=== PATIENT | male | born 1965 | race Caucasian/White ===

== ENCOUNTER → 2016-11-11 | Outpatient (CLI) | payer BC ==
[2016-11-11 12:34] LABS: ALT/SGPT 38 U/L (12-78); BLOOD UREA NITROGEN 12 mg/dl (7-18); BUN/CREATININE RATIO 12.7 (10-20); CALCIUM 8.7 mg/dl (8.5-10.1); CARBON DIOXIDE 26 mmol/L (21-32); CHLORIDE 103 mmol/L (98-107); CHOLESTEROL 149 mg/dl (0-200); CREATININE 0.96 mg/dl (0.60-1.40); GLUCOSE 247 mg/dl (70-99); POTASSIUM 4.3 mmol/L (3.5-5.1); SODIUM 140 mmol/L (136-145); TRIGLYCERIDES 267 mg/dl (0-150); VERY LOW DENSITY LIPOPROT CALC 53 mg/dl
[2016-11-11 12:38] LABS: ALB/GLOB RATIO 1.3 (0.9-2); ALKALINE PHOSPHATASE 49 U/L (45-117); AST/SGOT 24 U/L (15-37); CHOLESTEROL/HDL RATIO 4.3; HDL CHOLESTEROL 35 mg/dl; LDL CHOLESTEROL CALCULATED 61 mg/dl
[2016-11-11 12:56] LABS: ESTIMATED AVERAGE GLUCOSE 197 mg/dl; HA1C FLAG Normal (Normal)
== END | disposition home or self-care (01) ==
LOC: C.LABBFT 09:52
PROVIDERS: ATTEND Internal Medicine
DX: E11.42 Type 2 diabetes mellitus with diabetic polyneuropathy (principal)

== ENCOUNTER → 2017-05-27 | Outpatient (CLI) | payer BC ==
[2017-05-27 12:25] LABS: ALT/SGPT 40 U/L (12-78); AST/SGOT 19 U/L (15-37); BLOOD UREA NITROGEN 15 mg/dl (7-18); BUN/CREATININE RATIO 15.4 (10-20); CALCIUM 8.8 mg/dl (8.5-10.1); CARBON DIOXIDE 28 mmol/L (21-32); CHLORIDE 105 mmol/L (98-107); CREATININE 0.96 mg/dl (0.60-1.40); GLUCOSE 205 mg/dl (70-99); POTASSIUM 4.3 mmol/L (3.5-5.1); SODIUM 140 mmol/L (136-145)
[2017-05-27 12:30] LABS: ESTIMATED AVERAGE GLUCOSE 214 mg/dl; HA1C FLAG Normal (Normal)
[2017-05-27 12:36] LABS: ALB/GLOB RATIO 1.2 (0.9-2); ALKALINE PHOSPHATASE 50 U/L (45-117); CHOLESTEROL 143 mg/dl (0-200); CHOLESTEROL/HDL RATIO 4.5; HDL CHOLESTEROL 32 mg/dl; LDL CHOLESTEROL CALCULATED 39 mg/dl; TRIGLYCERIDES 359 mg/dl (0-150); VERY LOW DENSITY LIPOPROT CALC 72 mg/dl
[2017-05-27 12:49] LABS: RATIO 9.8 mcg/mg (0-30.0)
== END | disposition home or self-care (01) ==
LOC: C.LAB 10:46
PROVIDERS: ATTEND Internal Medicine
DX: E11.42 Type 2 diabetes mellitus with diabetic polyneuropathy (principal)

== ENCOUNTER → 2017-12-15 | Outpatient (CLI) | payer OTHER ==
[2017-12-15 13:31] LABS: HEMOGLOBIN A1C 9.5 % (4.5-5.6)
[2017-12-15 14:19] LABS: ALBUMIN 3.9 gm/dl (3.4-5.0); ALKALINE PHOSPHATASE 51 U/L (45-117); ALT/SGPT 39 U/L (12-78); AST/SGOT 21 U/L (15-37); BLOOD UREA NITROGEN 15 mg/dl (7-18); CALCIUM 9.2 mg/dl (8.5-10.1); CARBON DIOXIDE 28 mmol/L (21-32); CHOLESTEROL 137 mg/dl (0-200); CREATININE 0.87 mg/dl (0.60-1.40); GLUCOSE 217 mg/dl (70-99); LDL CHOLESTEROL CALCULATED 35 mg/dl; SODIUM 136 mmol/L (136-145); TOTAL PROTEIN 7.3 gm/dl (6.4-8.2)
== END | disposition home or self-care (01) ==
LOC: C.LABBFT 09:53
PROVIDERS: ATTEND Internal Medicine
DX: E11.42 Type 2 diabetes mellitus with diabetic polyneuropathy (principal)

== ENCOUNTER 2021-02-20 20:25 | Inpatient (IN) ==
[2021-02-20] MEDS ORDERED: SODIUM CHLORIDE 0.9% 1000ML 1,000 ML IV SCH (21:45)
--- NOTE | 2021-02-20 21:51 | Emergency Department Note ---
History of Present Illness General Chief complaint: Shortness of Breath/Dyspnea Stated complaint: pain-upper abdominal-sob Time Seen by Provider: 02/20/21 21:28 History of Present Illness This is a 55-year-old male presenting to the emergency department for evaluation of shortness of breath symptoms worsening over the past 2 days. The patient did contact his primary care physician office where he spoke to the provider via telephone. Chest x-ray and BNP were ordered and without significant acute findings. The patient attempted to be seen today, but was not able to get in with a family doctor, and they referred him to the ER. The patient is diabetic with history of hypertension. He gets very winded with walking 15-20 steps. He has not had any fevers or chills. He does not feel like he is having any coughing or wheezing. He has been able to quarantine throughout the COVID- pandemic very well and has not had any known exposures. The patient rates his current discomfort a 5/10. Home Medications Medication Instructions Recorded Confirmed Type aspirin 81 mg tablet,delayed 81 mg PO BID #30 tab 05/26/19 02/20/21 Rx release pen needle, diabetic 31 gauge x #200 ea 06/25/19 02/19/21 Rx 03/22" blood-glucose meter, drum-type #1 ea 07/03/19 02/19/21 Rx blood sugar diagnostic #200 ea 07/05/19 02/19/21 Rx lancets #200 ea 07/05/19 02/19/21 Rx glimepiride 4 mg tablet 4 mg PO BID #180 tab 07/18/20 02/20/21 Rx metformin 500 mg tablet 1,000 mg PO BID #360 tab 08/25/20 02/20/21 Rx metoprolol succinate 200 mg 200 mg PO DAILY #30 tab 09/25/20 02/20/21 Rx tablet,extended release 24 hr saw palmetto 160 mg capsule 160 mg PO BID 12/03/20 02/20/21 History atorvastatin 10 mg tablet 10 mg PO QPM #90 tab 12/12/20 02/20/21 Rx fluticasone propionate 50 2 spray INTNAS DAILY PRN ml 12/24/20 02/20/21 History mcg/actuation nasal spray,suspension glucosamine sulfate 500 mg tablet 500 mg PO DAILY tab 12/24/20 02/20/21 History tamsulosin 0.4 mg capsule 0.4 mg PO DAILY #30 cap 12/24/20 02/20/21 Rx albuterol sulfate 90 mcg/actuation 1 inh INHALATION QID PRN #8.5 g 02/19/21 02/20/21 Rx aerosol inhaler insulin glargine [Basaglar KwikPen 70 unit SUBCUT HS 02/20/21 02/20/21 History U-100 Insulin] insulin glargine [Basaglar KwikPen 100 unit SQ QAM 02/20/21 02/20/21 History U-100 Insulin] losartan 50 mg PO DAILY 02/20/21 02/20/21 History meloxicam 15 mg PO DAILY PRN 02/20/21 02/20/21 History Allergies Allergy/AdvReac Type Severity Reaction Status Date / Time No Known Allergies Allergy Verified 02/20/21 22:15 Past Med/Surg History Medical History BPH (benign prostatic hyperplasia) Diabetes Hyperlipidemia Hypertension Patellofemoral arthralgia of both knees Social History Smoking Status: Never smoker Second Hand Exposure: No; Do You Dip or Chew Tobacco: No; Hx Alcohol Use: No Hx Substance Use: No Preferred Language: [place] Communication Ability: Effective [employer] Required: No Beliefs That Will Affect Care: None Current Living Situation: Alone Other Information That Helps Us Care for You: No (work alot, i don't have much help) Feels Safe at Home: Yes Safety Concerns: Feels Safe At This Time Assistive Devices: Glasses Review of Systems A total of 10 systems reviewed and were otherwise negative Physical Exam Vital Signs Vital Signs - 24 hr 02/21/21 08:00 02/21/21 08:06 02/21/21 12:16 Temperature 36.7 C 36.8 C Temperature Source Oral Pulse Rate 87 Pulse Rate [Apical] 85 91 H Pulse Rate [Finger] Respiratory Rate 19 19 Respiratory Effort / Characteristics Non-Labored Spontaneous Respiratory Depth Normal Normal Blood Pressure [Right Arm] 143/83 H 148/84 H Blood Pressure Mean [Right Arm] 103 105 Blood Pressure Position [Right Arm] Pulse Oximetry 95 94 Oxygen Delivery Method Room Air Room Air 02/21/21 13:02 02/21/21 15:00 02/21/21 16:03 Temperature Temperature Source Pulse Rate 89 92 H Pulse Rate [Apical] 95 H Pulse Rate [Finger] Respiratory Rate Respiratory Effort / Characteristics Respiratory Depth Blood Pressure [Right Arm] 145/105 H Blood Pressure Mean [Right Arm] 118 Blood Pressure Position [Right Arm] Pulse Oximetry Oxygen Delivery Method 02/21/21 16:25 02/21/21 18:07 Temperature 36.7 C Temperature Source Oral Pulse Rate Pulse Rate [Apical] Pulse Rate [Finger] 86 Respiratory Rate 18 Respiratory Effort / Characteristics Spontaneous SOB on Exertion Respiratory Depth Blood Pressure [Right Arm] 136/80 Blood Pressure Mean [Right Arm] 98 Blood Pressure Position [Right Arm] Sitting Pulse Oximetry 96 Oxygen Delivery Method Room Air Room Air VITALS: Vitals are noted on the nurse's note and reviewed by myself. Vital signs stable. GENERAL: Well-developed, well-nourished, white male, who is in no acute distress and resting comfortably. Patient is cooperative with the examination. HEAD: Normocephalic atraumatic. NECK: Supple without nuchal rigidity. No lymphadenopathy. No thyromegaly. Cervical spine is nontender. HEART: Irregularly irregular LUNGS: Clear to auscultation bilaterally without wheezes, rales or rhonchi. No retractions or accessory muscle use. ABDOMEN: Positive normal bowel sounds x 4. Soft, nontender, without masses or organomegaly. No guarding or rebound tenderness. MUSCULOSKELETAL: No muscle atrophy, erythema, or edema noted. Full range of motion in all extremities. NEURO: Patient was alert and oriented to person place and time. CN II through XII grossly intact. Course Administered Medications Aspirin (Aspirin 81 Mg Ectab) 81 mg PO BID [facility] Stop: 03/23/21 08:59 Last Admin: 02/21/21 20:34 Dose: 81 mg Documented by: [id number] Admin: 02/21/21 08:11 Dose: 81 mg Documented by: [id number] Atorvastatin Calcium (Atorvastatin 10 Mg Tab) 10 mg PO QPM BIRDIE Stop: 03/23/21 20:59 Last Admin: 02/21/21 20:35 Dose: 10 mg Documented by: [id number] Enoxaparin Sodium (Enoxaparin 150 Mg/Ml Syr) 141 mg SQ Q12 B[facility] Stop: 03/23/21 08:59 Last Admin: 02/21/21 20:36 Dose: 141 mg Documented by: [id number] Admin: 02/21/21 08:12 Dose: 141 mg Documented by: [id number] Glucosamine Sulfate (Glucosamine Sulfate 500 Mg Cap) 500 mg PO DAILY BIRDIE Stop: 03/23/21 08:59 Last Admin: 02/21/21 08:12 Dose: 500 mg Documented by: [id number] Furosemide 40 mg/ Syringe 4 mls @ 4 mls/min IV BID BIRDIE Stop: 03/23/21 12:29 Last Admin: 02/21/21 21:15 Dose: 4 mls/min Documented by: [id number] Admin: 02/21/21 13:01 Dose: 4 mls/min Documented by: [id number] Insulin Aspart (Insulin Aspart 100 Units/Ml 3 Ml Pen) 0 units SC ACHS BIRDIE Stop: 03/23/21 07:29 Last Admin: 02/21/21 20:39 Dose: Not Given Documented by: [id number] Cosigned by: [id number] Admin: 02/21/21 17:26 Dose: 5 units Documented by: [id number] Cosigned by: [id number] Admin: 02/21/21 12:04 Dose: 6 units Documented by: [id number] Cosigned by: [id number] Admin: 02/21/21 08:10 Dose: 5 units Documented by: [id number] Cosigned by: [id number] Insulin Glargine (Insulin Glargine 100 Unit/Ml Vial) 70 units SQ QAM [facility] Stop: 03/23/21 08:59 Last Admin: 02/21/21 08:11 Dose: 70 units Documented by: [id number] Cosigned by: [id number] Insulin Glargine (Insulin Glargine 100 Unit/Ml Vial) 50 units SQ HS [facility] Stop: 03/23/21 20:59 Last Admin: 02/21/21 20:39 Dose: 50 units Documented by: [id number] Cosigned by: [id number] Miscellaneous (Carbohydrates For Hypoglycemia ) 15 - 30 gm PO UD PRN PRN Reason: Hypoglycemia Protocol Stop: 03/23/21 02:24 Last Admin: 02/21/21 03:10 Dose: 15 gm Documented by: [id number] Tamsulosin HCl (Tamsulosin Hcl 0.4 Mg Cap) 0.4 mg PO DAILY BIRDIE Stop: 03/23/21 08:59 Last Admin: 02/21/21 08:12 Dose: 0.4 mg Documented by: [id number] Discontinued Medications Sodium Chloride (Nss 1000ml) 1,000 mls @ 999 mls/hr IV .Q1H1M BIRDIE Stop: 02/20/21 22:45 Last Infusion: 02/20/21 22:57 Dose: 0 mls/hr Documented by: [id number] Admin: 02/20/21 21:46 Dose: 999 mls/hr Documented by: [id number] Metoprolol Succinate (Metoprolol Succ 50mg Ext Rel Tab) 200 mg PO NOW STA Stop: 02/20/21 23:58 Last Admin: 02/21/21 00:20 Dose: 200 mg Documented by: [id number] Metoprolol Succinate (Metoprolol Succ 50mg Ext Rel Tab) 200 mg PO DAILY BIRDIE Stop: 03/23/21 08:59 Last Admin: 02/21/21 08:11 Dose: 200 mg Documented by: [id number] Metoprolol Succinate (Metoprolol Succ 50mg Ext Rel Tab) 50 mg PO NOW STA Stop: 02/21/21 12:21 Last Admin: 02/21/21 13:01 Dose: 50 mg Documented by: [id number] Medical Decision Making Differential Diagnosis Differential diagnosis includes, but is not limited to: Myocardial infarction, dysrhythmia, pericarditis, pneumothorax, aortic aneurysm/dissection, DVT/PE, anxiety, GERD, PUD, electrolyte imbalance, thyroid disorder, pneumonia, b ronchitis, pancreatitis, and others Laboratory Data Result diagrams: 02/20/21 21:35 02/21/21 18:55 Lab Results 02/20/21 02/20/21 02/20/21 Range/Units 21:35 21:35 21:35 WBC 5.61 (4.8-10.8) K/uL RBC 4.49 L (4.7-6.1) M/uL Hgb 12.8 L (14.0-18.0) g/dL Hct 37.6 L (42-52) % MCV 83.7 (80-100) fL MCH 28.5 (25-34) pg MCHC 34.0 (32-36) g/dL RDW Std Deviation 38.5 (36.4-46.3) fL RDW Coeff of Alek 12.8 (11.5-14.5) % Plt Count 162 (130-400) K/uL MPV 12.1 H (7.4-10.4) fL Immature Gran % (Auto) 0.2 % Neut % (Auto) 66.5 % Lymph % (Auto) 21.7 % Edwards % (Auto) 10.0 % Eos % (Auto) 1.4 % Baso % (Auto) 0.2 % Neut # (Auto) 3.73 (1.4-6.5) K/uL Lymph # (Auto) 1.22 (1.2-3.4) K/uL Edwards # (Auto) 0.56 (0.11-0.59) K/uL Eos # (Auto) 0.08 (0-0.5) K/uL Baso # (Auto) 0.01 (0-0.2) K/uL Immature Gran # (Auto) 0.01 (0.00-0.02) K/uL PT 11.2 (9.0-12.0) Seconds INR 1.1 (0.9-1.1) APTT 24.2 (21.0-31.0) Seconds PTT Ratio 0.9 Sodium 141 (136-145) mmol/L Potassium 4.0 (3.5-5.1) mmol/L Chloride 110 H (98-107) mmol/L Carbon Dioxide 25 (21-32) mmol/L Anion Gap 6.0 (3-11) BUN 19 H (7-18) mg/dl Creatinine 0.80 (0.6-1.4) mg/dl Est Cr Clr Drug Dosing Not Reportable Est GFR ( Amer) 114.9 Est GFR (Non-Af Amer) 99.2 BUN/Creatinine Ratio 23.7 H (10-20) Glucose 141 H (70-99) mg/dl POC Glucose (70-99) mg/dl Estimat Average Glucose mg/dl Hemoglobin A1c (4.5-5.6) % Calcium 8.8 (8.5-10.1) mg/dl Magnesium 2.1 (1.8-2.4) mg/dl Total Bilirubin 0.6 (0.2-1) mg/dl AST 37 (15-37) U/L ALT 67 (12-78) U/L Alkaline Phosphatase 51 (45-117) U/L Troponin I 0.025 (0-0.045) ng/ml NT-Pro-B Natriuret Pep 1805 H (0-900) pg/ml Total Protein 6.3 L (6.4-8.2) gm/dl Albumin 3.4 (3.4-5.0) gm/dl Globulin 2.9 (2.5-4.0) gm/dl Albumin/Globulin Ratio 1.2 (0.9-2) Lipase 136 (73-393) U/L TSH 1.960 (0.300-4.500) uIu/ml Urine Color Urine Appearance (Clear) Urine pH (4.5-7.5) Ur Specific [place] (1.000-1.030) Urine Protein (Negative) Urine Glucose (UA) (Negative) Urine Ketones (Negative) Urine Blood (Negative) Urine Nitrite (Negative) Urine Bilirubin (Negative) Urine Urobilinogen (Negative) Ur Leukocyte Esterase (Negative) Urine WBC (Auto) (0-5) /hpf Urine RBC (Auto) (0-4) /hpf U Hyaline Cast (Auto) (0-5) /lpf U Epithel Cells (Auto) (0-5) /lpf Urine Bacteria (Auto) (Negative) COVID-19 Eval Order SARS-CoV-2 (PCR) (Negative) Hepatitis C Ab Screen (Neg) Influenza Type A (PCR) (Neg) Influenza Type B (PCR) (Neg) RSV (RT-PCR) (Neg) 02/20/21 02/20/21 02/20/21 Range/Units 21:44 21:44 22:28 WBC (4.8-10.8) K/uL RBC (4.7-6.1) M/uL Hgb (14.0-18.0) g/dL Hct (42-52) % MCV (80-100) fL MCH (25-34) pg MCHC (32-36) g/dL RDW Std Deviation (36.4-46.3) fL RDW Coeff of Alek (11.5-14.5) % Plt Count (130-400) K/uL MPV (7.4-10.4) fL Immature Gran % (Auto) % Neut % (Auto) % Lymph % (Auto) % Edwards % (Auto) % Eos % (Auto) % Baso % (Auto) % Neut # (Auto) (1.4-6.5) K/uL Lymph # (Auto) (1.2-3.4) K/uL Edwards # (Auto) (0.11-0.59) K/uL Eos # (Auto) (0-0.5) K/uL Baso # (Auto) (0-0.2) K/uL Immature Gran # (Auto) (0.00-0.02) K/uL PT (9.0-12.0) Seconds INR (0.9-1.1) APTT (21.0-31.0) Seconds PTT Ratio Sodium (136-145) mmol/L Potassium (3.5-5.1) mmol/L Chloride (98-107) mmol/L Carbon Dioxide (21-32) mmol/L Anion Gap (3-11) BUN (7-18) mg/dl Creatinine (0.6-1.4) mg/dl Est Cr Clr Drug Dosing Est GFR ( Amer) Est GFR (Non-Af Amer) BUN/Creatinine Ratio (10-20) Glucose (70-99) mg/dl POC Glucose (70-99) mg/dl Estimat Average Glucose mg/dl Hemoglobin A1c (4.5-5.6) % Calcium (8.5-10.1) mg/dl Magnesium (1.8-2.4) mg/dl Total Bilirubin (0.2-1) mg/dl AST (15-37) U/L ALT (12-78) U/L Alkaline Phosphatase (45-117) U/L Troponin I (0-0.045) ng/ml NT-Pro-B Natriuret Pep (0-900) pg/ml Total Protein (6.4-8.2) gm/dl Albumin (3.4-5.0) gm/dl Globulin (2.5-4.0) gm/dl Albumin/Globulin Ratio (0.9-2) Lipase (73-393) U/L TSH (0.300-4.500) uIu/ml Urine Color Yellow Urine Appearance Clear (Clear) Urine pH 5.0 (4.5-7.5) Ur Specific [place] 1.026 (1.000-1.030) Urine Protein Trace H (Negative) Urine Glucose (UA) Negative (Negative) Urine Ketones Negative (Negative) Urine Blood Negative (Negative) Urine Nitrite Negative (Negative) Urine Bilirubin Negative (Negative) Urine Urobilinogen Negative (Negative) Ur Leukocyte Esterase Negative (Negative) Urine WBC (Auto) 1-5 (0-5) /hpf Urine RBC (Auto) 0-4 (0-4) /hpf U Hyaline Cast (Auto) 1-5 (0-5) /lpf U Epithel Cells (Auto) 10-20 H (0-5) /lpf Urine Bacteria (Auto) Negative (Negative) COVID-19 Eval Order CovFluRsv at [facility] SARS-CoV-2 (PCR) NEGATIVE (Negative) Hepatitis C Ab Screen (Neg) Influenza Type A (PCR) Negative (Neg) Influenza Type B (PCR) Negative (Neg) RSV (RT-PCR) Negative (Neg) 02/21/21 02/21/21 02/21/21 Range/Units 03:07 03:24 05:42 WBC (4.8-10.8) K/uL RBC (4.7-6.1) M/uL Hgb (14.0-18.0) g/dL Hct (42-52) % MCV (80-100) fL MCH (25-34) pg MCHC (32-36) g/dL RDW Std Deviation (36.4-46.3) fL RDW Coeff of Alek (11.5-14.5) % Plt Count (130-400) K/uL MPV (7.4-10.4) fL Immature Gran % (Auto) % Neut % (Auto) % Lymph % (Auto) % Edwards % (Auto) % Eos % (Auto) % Baso % (Auto) % Neut # (Auto) (1.4-6.5) K/uL Lymph # (Auto) (1.2-3.4) K/uL Edwards # (Auto) (0.11-0.59) K/uL Eos # (Auto) (0-0.5) K/uL Baso # (Auto) (0-0.2) K/uL Immature Gran # (Auto) (0.00-0.02) K/uL PT (9.0-12.0) Seconds INR (0.9-1.1) APTT (21.0-31.0) Seconds PTT Ratio Sodium (136-145) mmol/L Potassium (3.5-5.1) mmol/L Chloride (98-107) mmol/L Carbon Dioxide (21-32) mmol/L Anion Gap (3-11) BUN (7-18) mg/dl Creatinine (0.6-1.4) mg/dl Est Cr Clr Drug Dosing Est GFR ( Amer) Est GFR (Non-Af Amer) BUN/Creatinine Ratio (10-20) Glucose (70-99) mg/dl POC Glucose 66 L* 81 (70-99) mg/dl Estimat Average Glucose mg/dl Hemoglobin A1c (4.5-5.6) % Calcium (8.5-10.1) mg/dl Magnesium (1.8-2.4) mg/dl Total Bilirubin (0.2-1) mg/dl AST (15-37) U/L ALT (12-78) U/L Alkaline Phosphatase (45-117) U/L Troponin I 0.024 (0-0.045) ng/ml NT-Pro-B Natriuret Pep (0-900) pg/ml Total Protein (6.4-8.2) gm/dl Albumin (3.4-5.0) gm/dl Globulin (2.5-4.0) gm/dl Albumin/Globulin Ratio (0.9-2) Lipase (73-393) U/L TSH (0.300-4.500) uIu/ml Urine Color Urine Appearance (Clear) Urine pH (4.5-7.5) Ur Specific [place] (1.000-1.030) Urine Protein (Negative) Urine Glucose (UA) (Negative) Urine Ketones (Negative) Urine Blood (Negative) Urine Nitrite (Negative) Urine Bilirubin (Negative) Urine Urobilinogen (Negative) Ur Leukocyte Esterase (Negative) Urine WBC (Auto) (0-5) /hpf Urine RBC (Auto) (0-4) /hpf U Hyaline Cast (Auto) (0-5) /lpf U Epithel Cells (Auto) (0-5) /lpf Urine Bacteria (Auto) (Negative) COVID-19 Eval Order SARS-CoV-2 (PCR) (Negative) Hepatitis C Ab Screen (Neg) Influenza Type A (PCR) (Neg) Influenza Type B (PCR) (Neg) RSV (RT-PCR) (Neg) 04/17/21 04/17/21 04/17/21 Range/Units 05:42 05:42 07:33 WBC (4.8-10.8) K/uL RBC (4.7-6.1) M/uL Hgb (14.0-18.0) g/dL Hct (42-52) % MCV (80-100) fL MCH (25-34) pg MCHC (32-36) g/dL RDW Std Deviation (36.4-46.3) fL RDW Coeff of Alek (11.5-14.5) % Plt Count (130-400) K/uL MPV (7.4-10.4) fL Immature Gran % (Auto) % Neut % (Auto) % Lymph % (Auto) % Edwards % (Auto) % Eos % (Auto) % Baso % (Auto) % Neut # (Auto) (1.4-6.5) K/uL Lymph # (Auto) (1.2-3.4) K/uL Edwards # (Auto) (0.11-0.59) K/uL Eos # (Auto) (0-0.5) K/uL Baso # (Auto) (0-0.2) K/uL Immature Gran # (Auto) (0.00-0.02) K/uL PT (9.0-12.0) Seconds INR (0.9-1.1) APTT (21.0-31.0) Seconds PTT Ratio Sodium (136-145) mmol/L Potassium (3.5-5.1) mmol/L Chloride (98-107) mmol/L Carbon Dioxide (21-32) mmol/L Anion Gap (3-11) BUN (7-18) mg/dl Creatinine (0.6-1.4) mg/dl Est Cr Clr Drug Dosing Est GFR ( Amer) Est GFR (Non-Af Amer) BUN/Creatinine Ratio (10-20) Glucose (70-99) mg/dl POC Glucose 139 H (70-99) mg/dl Estimat Average Glucose 189 mg/dl Hemoglobin A1c 8.2 H (4.5-5.6) % Calcium (8.5-10.1) mg/dl Magnesium (1.8-2.4) mg/dl Total Bilirubin (0.2-1) mg/dl AST (15-37) U/L ALT (12-78) U/L Alkaline Phosphatase (45-117) U/L Troponin I (0-0.045) ng/ml NT-Pro-B Natriuret Pep (0-900) pg/ml Total Protein (6.4-8.2) gm/dl Albumin (3.4-5.0) gm/dl Globulin (2.5-4.0) gm/dl Albumin/Globulin Ratio (0.9-2) Lipase (73-393) U/L TSH (0.300-4.500) uIu/ml Urine Color Urine Appearance (Clear) Urine pH (4.5-7.5) Ur Specific [place] (1.000-1.030) Urine Protein (Negative) Urine Glucose (UA) (Negative) Urine Ketones (Negative) Urine Blood (Negative) Urine Nitrite (Negative) Urine Bilirubin (Negative) Urine Urobilinogen (Negative) Ur Leukocyte Esterase (Negative) Urine WBC (Auto) (0-5) /hpf Urine RBC (Auto) (0-4) /hpf U Hyaline Cast (Auto) (0-5) /lpf U Epithel Cells (Auto) (0-5) /lpf Urine Bacteria (Auto) (Negative) COVID-19 Eval Order SARS-CoV-2 (PCR) (Negative) Hepatitis C Ab Screen Neg (Neg) Influenza Type A (PCR) (Neg) Influenza Type B (PCR) (Neg) RSV (RT-PCR) (Neg) 02/21/21 02/21/21 02/21/21 Range/Units 11:32 11:52 16:51 WBC (4.8-10.8) K/uL RBC (4.7-6.1) M/uL Hgb (14.0-18.0) g/dL Hct (42-52) % MCV (80-100) fL MCH (25-34) pg MCHC (32-36) g/dL RDW Std Deviation (36.4-46.3) fL RDW Coeff of Alek (11.5-14.5) % Plt Count (130-400) K/uL MPV (7.4-10.4) fL Immature Gran % (Auto) % Neut % (Auto) % Lymph % (Auto) % Edwards % (Auto) % Eos % (Auto) % Baso % (Auto) % Neut # (Auto) (1.4-6.5) K/uL Lymph # (Auto) (1.2-3.4) K/uL Edwards # (Auto) (0.11-0.59) K/uL Eos # (Auto) (0-0.5) K/uL Baso # (Auto) (0-0.2) K/uL Immature Gran # (Auto) (0.00-0.02) K/uL PT (9.0-12.0) Seconds INR (0.9-1.1) APTT (21.0-31.0) Seconds PTT Ratio Sodium (136-145) mmol/L Potassium (3.5-5.1) mmol/L Chloride (98-107) mmol/L Carbon Dioxide (21-32) mmol/L Anion Gap (3-11) BUN (7-18) mg/dl Creatinine (0.6-1.4) mg/dl Est Cr Clr Drug Dosing Est GFR ( Amer) Est GFR (Non-Af Amer) BUN/Creatinine Ratio (10-20) Glucose (70-99) mg/dl POC Glucose 90 110 H (70-99) mg/dl Estimat Average Glucose mg/dl Hemoglobin A1c (4.5-5.6) % Calcium (8.5-10.1) mg/dl Magnesium (1.8-2.4) mg/dl Total Bilirubin (0.2-1) mg/dl AST (15-37) U/L ALT (12-78) U/L Alkaline Phosphatase (45-117) U/L Troponin I 0.021 (0-0.045) ng/ml NT-Pro-B Natriuret Pep (0-900) pg/ml Total Protein (6.4-8.2) gm/dl Albumin (3.4-5.0) gm/dl Globulin (2.5-4.0) gm/dl Albumin/Globulin Ratio (0.9-2) Lipase (73-393) U/L TSH (0.300-4.500) uIu/ml Urine Color Urine Appearance (Clear) Urine pH (4.5-7.5) Ur Specific [place] (1.000-1.030) Urine Protein (Negative) Urine Glucose (UA) (Negative) Urine Ketones (Negative) Urine Blood (Negative) Urine Nitrite (Negative) Urine Bilirubin (Negative) Urine Urobilinogen (Negative) Ur Leukocyte Esterase (Negative) Urine WBC (Auto) (0-5) /hpf Urine RBC (Auto) (0-4) /hpf U Hyaline Cast (Auto) (0-5) /lpf U Epithel Cells (Auto) (0-5) /lpf Urine Bacteria (Auto) (Negative) COVID-19 Eval Order SARS-CoV-2 (PCR) (Negative) Hepatitis C Ab Screen (Neg) Influenza Type A (PCR) (Neg) Influenza Type B (PCR) (Neg) RSV (RT-PCR) (Neg) Imaging Data Radiologist's Impression: Chest X-Ray 02/20/21 21:38 XR chest 1V portable CLINICAL HISTORY: Shortness of breath COMPARISON STUDY: 02/19/2021 FINDINGS: The heart remains enlarged. There is mild central vascular prominence. Mild pulmonary vascular congestion cannot be excluded. There is no lobar consolidation. There are no pleural effusions.[ IMPRESSION: Cardiomegaly and equivocal mild central pulmonary vascular congestion. No evidence of focal pulmonary consolidation ACT 112: Negative or not required by law. Electronically signed by: Papi Douglas M.D. 02/21/2021 8:53 AM ECG Data Attestation: I personally reviewed and interpreted this ECG as follows: Indication: + SOB/dyspnea Additional Comments: Atrial fibrillation with rapid ventricular response with premature ventricular or aberrantly conducted complexes @108 bpm Left anterior fascicular block Anterolateral infarct , age undetermined Abnormal ECG No previous ECGs available MDM Narrative Physical exam and history were performed. Nursing notes, EMR, and Medication List were personally reviewed. Patient appears to have shortness of breath symptoms as well as some mild discomfort in the upper abdomen. IV access was established and labs were obtained. EKG was performed and very quickly revealed atrial fibrillation with RVR. The patient is bouncing between 100 bpm and about 120 bpm, and is as current on metoprolol. An order was placed for continuous cardiac monitoring. The monitor shows a rate of 112 with atrial fibrillation rhythm. The patient blood work is as above and was reviewed. He does not have a si gnificantly elevated white blood cell count. He is mildly anemic at 12.8. He does not have significant electrolyte imbalance. Covid was performed and negative. Lipase and transaminases are not diagnostic. TSH shows euthyroid state. His troponin is detectable at 0.025, which is still considered within the normal range but concerning. BNP is 1805. Overall the patient does not appear well for discharge home. He appears to be in A. fib with RVR. This is new onset for him. I did discuss the case with the on-call hospitalist team who agreed to evaluate the patient here in the department. Please see their dictation for further patient course, plan, and disposition. The chart was completed utilizing [employer] Speech Voice Recognition Software. Grammatical errors, random word insertions, pronoun errors, and incomplete sentences are an occasional consequence of this system due to software limitations, ambient noise, and hardware issues. Any formal questions or concerns about the content, text, or information contained within the body of this dictation should be directly addressed to the provider for clarification. . Impression & Plan Atrial fibrillation with RVR, Shortness of breath Discharge Plan Visit Data Chief Complaint: Shortness of Breath/Dyspnea Stated Complaint: pain-upper abdominal-sob ED Provider: Betty Schaeffer ED Midlevel Provider: Akshat Laurent Discharge Problem: Atrial fibrillation with RVR, Shortness of breath Patient Disposition: Admitted As Inpatient Discharge Instructions Interventions: ED Discharge Assessment Last Done: 02/21/21 02:05
[2021-02-20 21:52] LABS: Basophils # (auto) 0.01 K/uL (0-0.2); Basophils % (auto) 0.2 %; Eosinophils # (auto) 0.08 K/uL (0-0.5); Eosinophils % (auto) 1.4 %; Hematocrit (blood only) 37.6 % (42-52); Hemoglobin 12.8 g/dL (14.0-18.0); Immature Granulocytes # (auto) 0.01 K/uL (0.00-0.02); Immature Granulocytes % (auto) 0.2 %; Lymphocytes # (auto) 1.22 K/uL (1.2-3.4); Lymphocytes % (auto) 21.7 %; Mean Corpuscular Hemoglobin 28.5 pg (25-34); Mean Corpuscular Volume 83.7 fL (80-100); Mean Platelet Volume 12.1 fL (7.4-10.4); Monocytes # (auto) 0.56 K/uL (0.11-0.59); Neutrophils # (auto) 3.73 K/uL (1.4-6.5); Neutrophils % (auto) 66.5 %; Platelet Count 162 K/uL (130-400); RDW Coefficient of Variation 12.8 % (11.5-14.5); RDW Standard Deviation 38.5 fL (36.4-46.3); Red Blood Count 4.49 M/uL (4.7-6.1); White Blood Count 5.61 K/uL (4.8-10.8)
[2021-02-20 22:08] LABS: Alanine Aminotransferase 67 U/L (12-78); Albumin Level 3.4 gm/dl (3.4-5.0); Aspartate Aminotransferase 37 U/L (15-37); BUN Creatinine Ratio 23.7 (10-20); Blood Urea Nitrogen 19 mg/dl (7-18); Calcium 8.8 mg/dl (8.5-10.1); Carbon Dioxide 25 mmol/L (21-32); Chloride 110 mmol/L (98-107); Est GFR (African American) 114.9; Est GFR (Non-African American) 99.2; Glucose 141 mg/dl (70-99); Lipase 136 U/L (73-393); Magnesium 2.1 mg/dl (1.8-2.4); Sodium 141 mmol/L (136-145)
[2021-02-20 22:09] LABS: INR 1.1 (0.9-1.1); Partial Thromboplastin Ratio 0.9; Partial Thromboplastin Time 24.2 Seconds (21.0-31.0); Prothrombin Time 11.2 Seconds (9.0-12.0)
[2021-02-20 22:18] LABS: Albumin Globulin Ratio 1.2 (0.9-2); Alkaline Phosphatase 51 U/L (45-117); Bilirubin,Total 0.6 mg/dl (0.2-1); Globulin 2.9 gm/dl (2.5-4.0); NT Pro B Type Natriuretic Pept 1805 pg/ml (0-900); Total Protein 6.3 gm/dl (6.4-8.2); Troponin I 0.025 ng/ml (0-0.045)
[2021-02-20 22:44] LABS: Influenza A virus by PCR Negative (Neg); Influenza B virus by PCR Negative (Neg); RSV by PCR Negative (Neg); SARS CoV2 RNA(COVID-19) InHosp NEGATIVE (Negative)
[2021-02-20 22:45] LABS: Appearance Urine Clear (Clear); Bacteria Urine Automated Negative (Negative); Bilirubin Urine Negative (Negative); Blood Urine Negative (Negative); Color Urine Yellow; Glucose Urine UA Negative (Negative); Ketones Urine Negative (Negative); Leukocyte Esterase Urine Negative (Negative); Nitrite Urine Negative (Negative); Protein Urine Trace (Negative); RBC Urine Automated 0-4 /hpf (0-4); Specific Gravity Urine 1.026 (1.000-1.030); Urobilinogen Urine Negative (Negative)
[2021-02-20] MEDS ORDERED: METOPROLOL SUCC 50MG EXT REL TAB PO STA (23:57)
--- NOTE | 2021-02-21 01:45 | History & Physical Report ---
Date of Service February 21, 2021 Assessment & Plan (1) Atrial fibrillation with RVR: Atrial fibrillation with RVR/hypertension- The patient will be admitted to telemetry for serial cardiac enzymes, serial EKG's, cardiac rhythm monitoring and a 2-D echocardiogram with Dopplers. Patient heart rate in the ED varied from 87-116. He is late in getting his evening metoprolol succinate 200 mg dose, which will be given now. 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 Chaudhari Present on Admission?: Yes (2) Diabetes: Continue insulin glargine, but reduced dosing from 100 units in the a.m. to 70 units in the a.m. and from 70 units and at bedtime to 50 units at bedtime. Hold glimepiride and Metformin. Placed on Accu-Cheks before meals and at bedtime with NovoLog coverage per scale Present on Admission?: Yes (3) Hypertension: See above Present on Admission?: Yes (4) Hyperlipidemia: Continue to lovastatin 10 mg at bedtime Present on Admission?: Yes (5) BPH w urinary obs/LUTS: Continue tamsulosin. Present on Admission?: Yes History of Present Illness Chief Complaint: The patient presents to the emergency department with complaint of worsening shortness of breath over the past 2 days. Primary Care Provider: Chicho Goodman MD The patient is a 55-year-old male with a past medical history including diabetes mellitus, hyperlipidemia, hypertension, BPH, orthopnea, patellofemoral knee pain, uncontrolled diabetes mellitus, diabetic neuropathy, long-term use of insulin and morbid obesity. Patient reports that initially began to develop some shortness of breath about 2 weeks ago, and then over the past 2 days become significantly worse. He did have a chest x-ray and BNP done in the outpatient setting, with which were not abnormal. When he called his family doctor's office today he referred him to the ED for assessment. Allergies Allergy/AdvReac Type Severity Reaction Status Date / Time No Known Allergies Allergy Verified 02/20/21 22:15 Home Medications Medication Instructions Recorded Confirmed Type aspirin 81 mg tablet,delayed 81 mg PO BID #30 tab 05/26/19 02/20/21 Rx release pen needle, diabetic 31 gauge x #200 ea 06/25/19 02/19/21 Rx 03/22" blood-glucose meter, drum-type #1 ea 07/03/19 02/19/21 Rx blood sugar diagnostic #200 ea 07/05/19 02/19/21 Rx lancets #200 ea 07/05/19 02/19/21 Rx glimepiride 4 mg tablet 4 mg PO BID #180 tab 07/18/20 02/20/21 Rx metformin 500 mg tablet 1,000 mg PO BID #360 tab 08/25/20 02/20/21 Rx metoprolol succinate 200 mg 200 mg PO DAILY #30 tab 09/25/20 02/20/21 Rx tablet,extended release 24 hr saw palmetto 160 mg capsule 160 mg PO BID 12/03/20 02/20/21 History atorvastatin 10 mg tablet 10 mg PO QPM #90 tab 12/12/20 02/20/21 Rx fluticasone propionate 50 2 spray INTNAS DAILY PRN ml 12/24/20 02/20/21 History mcg/actuation nasal spray,suspension glucosamine sulfate 500 mg tablet 500 mg PO DAILY tab 12/24/20 02/20/21 History tamsulosin 0.4 mg capsule 0.4 mg PO DAILY #30 cap 12/24/20 02/20/21 Rx albuterol sulfate 90 mcg/actuation 1 inh INHALATION QID PRN #8.5 g 02/19/21 02/20/21 Rx aerosol inhaler insulin glargine [Basaglar KwikPen 70 unit SUBCUT HS 02/20/21 02/20/21 History U-100 Insulin] insulin glargine [Basaglar KwikPen 100 unit SQ QAM 02/20/21 02/20/21 History U-100 Insulin] losartan 50 mg PO DAILY 02/20/21 02/20/21 History meloxicam 15 mg PO DAILY PRN 02/20/21 02/20/21 History Past Med/Surg History Medical History BPH (benign prostatic hyperplasia) Diabetes Hyperlipidemia Hypertension Patellofemoral arthralgia of both knees Social History Smoking Status: Never smoker Second Hand Exposure: No; Do You Dip or Chew Tobacco: No; Hx Alcohol Use: No Hx Substance Use: No Preferred Language: Cymraes Communication Ability: Effective 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 Beliefs That Will Affect Care: None Current Living Situation: Alone Other Information That Helps Us Care for You: No (work alot, i don't have much help) Feels Safe at Home: Yes Safety Concerns: Feels Safe At This Time Assistive Devices: Glasses Review of Systems Review of Systems: The patient denies chest pain, cough, lower extremity swelling, sore throat, fevers, chills, sweats, nausea, vomiting, diarrhea , constipation, abdominal pain, pelvic pain, blood in urine or stool, dysuria, urinary frequency or urgency, lightheadedness, dizziness, headache, memory loss, loss of consciousness, rash, abnormal bruising or bleeding, imbalance, focal or generalized weakness, numbness or tingling in arms or legs, generalized arthralgias or myalgias, back or neck pain, or night sweats. The review of systems is otherwise negative other than for that already noted above, and at least 10 systems have been reviewed. Physical Exam Physical Exam: The patient is awake, alert and oriented 3, well developed and well nourished, normocephalic and atraumatic, lying in bed and in no acute distress. HEENT--PERRL, EOMI, mucous membranes and oropharynx dry. Neck--supple. No JVD. No bruits. Thyroid normal, trachea midline, no adenopat hy. Heart--. Irregularly irregular no murmurs, rubs or gallops. Lungs--clear bilaterally, no respiratory distress, no accessory muscle use. Abdomen--normal bowel sounds and soft. Nontender. Nondistended. Morbidly obese Extremities--no cyanosis or clubbing. No edema. Dermatologic--normal skin turgor, normal color, no abnormal lymph nodes, no rash. Neurologic--cranial nerves II through XII grossly intact. Rheumatologic--normal range of motion. Psychiatric--normal affect. Results & Data Results & Data ([facility]) Vital Signs (Past 12 Hours) Vital Signs Temp Pulse Pulse Resp BP BP Pulse Ox 02/21/21 01:23 94 H 20 128/102 H 97 02/20/21 23:08 100 H 18 147/101 H 95 02/20/21 21:43 96 02/20/21 21:30 113 H 16 171/106 H 95 02/20/21 21:00 101 H 23 147/122 H 95 02/20/21 20:58 95 H 19 146/105 H 96 02/20/21 20:32 96.8 F L 116 H 24 153/105 H 94 Laboratory Results Laboratory Results WBC 5.61 K/uL (4.8-10.8) 02/20/21 21:35 RBC 4.49 M/uL (4.7-6.1) L 02/20/21 21:35 Hgb 12.8 g/dL (14.0-18.0) L 02/20/21 21:35 Hct 37.6 % (42-52) L 02/20/21 21:35 MCV 83.7 fL (80-100) 02/20/21 21:35 MCH 28.5 pg (25-34) 02/20/21 21:35 MCHC 34.0 g/dL (32-36) 02/20/21 21:35 RDW Std Deviation 38.5 fL (36.4-46.3) 02/20/21 21:35 RDW Coeff of Alek 12.8 % (11.5-14.5) 02/20/21 21:35 Plt Count 162 K/uL (130-400) 02/20/21 21:35 MPV 12.1 fL (7.4-10.4) H 02/20/21 21:35 Immature Gran % (Auto) 0.2 % 02/20/21 21:35 Neut % (Auto) 66.5 % 02/20/21 21:35 Lymph % (Auto) 21.7 % 02/20/21 21:35 [place] % (Auto) 10.0 % 02/20/21 21:35 Eos % (Auto) 1.4 % 02/20/21 21:35 Baso % (Auto) 0.2 % 02/20/21 21:35 Neut # (Auto) 3.73 K/uL (1.4-6.5) 02/20/21 21:35 Lymph # (Auto) 1.22 K/uL (1.2-3.4) 02/20/21 21:35 [place] # (Auto) 0.56 K/uL (0.11-0.59) 04/16/21 21:35 Eos # (Auto) 0.08 K/uL (0-0.5) 02/20/21 21:35 Baso # (Auto) 0.01 K/uL (0-0.2) 02/20/21 21:35 Immature Gran # (Auto) 0.01 K/uL (0.00-0.02) 02/20/21 21:35 PT 11.2 Seconds (9.0-12.0) 02/20/21 21:35 INR 1.1 (0.9-1.1) 02/20/21 21:35 APTT 24.2 Seconds (21.0-31.0) 02/20/21 21:35 PTT Ratio 0.9 02/20/21 21:35 Sodium 141 mmol/L (136-145) 02/20/21 21:35 Potassium 4.0 mmol/L (3.5-5.1) 02/20/21 21:35 Chloride 110 mmol/L (98-107) H 02/20/21 21:35 Carbon Dioxide 25 mmol/L (21-32) 02/20/21 21:35 Anion Gap 6.0 (3-11) 02/20/21 21:35 BUN 19 mg/dl (7-18) H 02/20/21 21:35 Creatinine 0.80 mg/dl (0.6-1.4) 02/20/21 21:35 Est Cr Clr Drug Dosing Not Reportable 02/20/21 21:35 Est GFR ( Amer) 114.9 02/20/21 21:35 Est GFR (Non-Af Amer) 99.2 02/20/21 21:35 BUN/Creatinine Ratio 23.7 (10-20) H 02/20/21 21:35 Glucose 141 mg/dl (70-99) H 02/20/21 21:35 POC Glucose 66 mg/dl (70-99) L* 02/21/21 03:07 Calcium 8.8 mg/dl (8.5-10.1) 02/20/21 21:35 Magnesium 2.1 mg/dl (1.8-2.4) 02/20/21 21:35 Total Bilirubin 0.6 mg/dl (0.2-1) 02/20/21 21:35 AST 37 U/L (15-37) 02/20/21 21:35 ALT 67 U/L (12-78) 02/20/21 21:35 Alkaline Phosphatase 51 U/L (45-117) 02/20/21 21:35 Troponin I 0.025 ng/ml (0-0.045) 02/20/21 21:35 NT-Pro-B Natriuret Pep 1805 pg/ml (0-900) H 02/20/21 21:35 Total Protein 6.3 gm/dl (6.4-8.2) L 02/20/21 21:35 Albumin 3.4 gm/dl (3.4-5.0) 02/20/21 21: Globulin 2.9 gm/dl (2.5-4.0) 02/20/21: Albumin/Globulin Ratio 1.2 (0.9-2) 02/20/21 21:35 Lipase 136 U/L (73-393) 02/20/21 21: TSH 1.960 uIu/ml (0.300-4.500) 02/20/21 21:35 Urine Color Yellow 02/20/21 22:28 Urine Appearance Clear (Clear) 02/20/21 22: Urine pH 5.0 (4.5-7.5) 02/20/21 22:28 Ur Specific [place] 1.026 (1.000-1.030) 02/20/21 22:28 Urine Protein Trace (Negative) H 02/20/21 22:28 Urine Glucose (UA) Negative (Negative) 02/20/21 22:28 Urine Ketones Negative (Negative) 02/20/21 22:28 Urine Blood Negative (Negative) 02/20/21 22:28 Urine Nitrite Negative (Negative) 02/20/21 22:28 Urine Bilirubin Negative (Negative) 02/20/21 22:28 Urine Urobilinogen Negative (Negative) 02/20/21 22:28 Ur Leukocyte Esterase Negative (Negative) 02/20/21 22:28 Urine WBC (Auto) 1-5 /hpf (0-5) 02/20/21 22:28 Urine RBC (Auto) 0-4 /hpf (0-4) 02/20/21 22:28 U Hyaline Cast (Auto) 1-5 /lpf (0-5) 02/20/21 22:28 U Epithel Cells (Auto) 10-20 /lpf (0-5) H 02/20/21 22:28 Urine Bacteria (Auto) Negative (Negative) 02/20/21 22:28 COVID-19 Eval Order CovFluRsv at [facility] 02/20/21 21:44 SARS-CoV-2 (PCR) NEGATIVE (Negative) 02/20/21 21:44 Influenza Type A (PCR) Negative (Neg) 02/20/21 21:44 Influenza Type B (PCR) Negative (Neg) 02/20/21 21:44 RSV (RT-PCR) Negative (Neg) 02/20/21 21:44 Code Status & VTE Plan Code Status Full code VTE Prophylaxis Plan VTE Prophylaxis will be ordered: Yes PG Care Time/CCT Total # of Minutes Spent Total Time Spent with Patient: Total time spent is greater than 50% in coordination of care (as documented) at patient's floor/unit and/or counseling patient: Coding Level of Care Code 85181 OBS Care - Level 3 Diagnoses Atrial fibrillation with RVR I48.91 Diabetes E11.9 Hypertension I10 Hyperlipidemia E78.5 BPH w urinary obs/LUTS N40.1; N13.8
[2021-02-21] MEDS ORDERED: DEXTROSE 50% 50 ML SYRINGE IV PRN (02:25)
[2021-02-21] MEDS ORDERED: ONDANSETRON INJ 2 MG/ML 2 ML VIAL IV PRN (02:25)
[2021-02-21] MEDS ORDERED: GLUCOSE 10 TABS/TUBE PO PRN (02:25)
[2021-02-21] MEDS ORDERED: ACETAMINOPHEN 325 MG TAB PO PRN (02:25)
[2021-02-21] MEDS ORDERED: FLUTICASONE PROPIONATE NA SPR 16 GM BTL PRN (02:25)
[2021-02-21] MEDS ORDERED: GLUCAGON FOR INJ 1 MG VIAL SQ PRN (02:25)
[2021-02-21] MEDS ORDERED: GLUCOSE 40% GEL 15 GM TUBE PO PRN (02:25)
[2021-02-21] MEDS: CARBOHYDRATES FOR HYPOGLYCEMIA PO PRN (03:10)
[2021-02-21] MEDS ORDERED: METOPROLOL TARTRATE 1 MG/ML VIAL IV PRN (03:29)
[2021-02-21] MEDS ORDERED: ENOXAPARIN 1 MG/KG SQ SCH (03:30)
[2021-02-21 07:46] LABS: Estimated Average Glucose 189 mg/dl; Hemoglobin A1C 8.2 % (4.5-5.6)
[2021-02-21] MEDS: INSULIN ASPART 100 UNITS/ML 3 ML PEN SC SCH ×4 (08:10→20:39)
[2021-02-21] MEDS: ASPIRIN 81 MG ECTAB PO SCH ×2 (08:11→20:34)
[2021-02-21] MEDS: TAMSULOSIN HCL 0.4 MG CAP PO SCH (08:12)
[2021-02-21] MEDS: ENOXAPARIN 150 MG/ML SYR SQ SCH ×2 (08:12→20:36)
[2021-02-21] MEDS: GLUCOSAMINE SULFATE 500 MG CAP PO SCH (08:12)
--- NOTE | 2021-02-21 08:55 | XRay Report ---
XR chest 1V portable CLINICAL HISTORY: Shortness of breath COMPARISON STUDY: 02/19/2021 FINDINGS: The heart remains enlarged. There is mild central vascular prominence. Mild pulmonary vascu lar congestion cannot be excluded. There is no lobar consolidation. There are no pleural effusions.[ IMPRESSION: Cardiomegaly and equivocal mild central pulmonary vascular congestion. No evidence of foc al pulmonary consolidation ACT 112: Negative or not required by law. Electronically signed by: Papi Douglas M.D. 02/21/2021 8:53 AM
[2021-02-21] MEDS ORDERED: INSULIN GLARGINE 100 UNIT/ML VIAL SQ SCH ×2 (09:00→21:00)
[2021-02-21] MEDS ORDERED: METOPROLOL SUCC 50MG EXT REL TAB PO SCH (09:00)
--- NOTE | 2021-02-21 10:46 | XCELERA ---
[id number]
--- NOTE | 2021-02-21 12:05 | Cardiology Consultation ---
Date of Consultation February 21, 2021 Assessment & Plan (1) Atrial fibrillation with RVR: He presented with atrial fibrillation and a mildly elevated ventricular rate. I suspect he likely transition to atrial fibrillation in the past couple of days. This could precipitated his symptoms. It is possible that he had atrial fibrillation for more extended period which resulted in some reduced LV function over time. However, his overall heart rates were not severely elevated. He has not been aware of the arrhythmia. Again, his overall rate control is reasonable. I do not think he has been very ambulatory in the hospital, but I think we could easily increase his metoprolol to 250 mg daily. He has a history of hypertension and diabetes and would benefit from systemic anticoagulation to reduce his risk of stroke. Ideally this would involve warfarin given his obesity, but Xarelto 20 mg daily would seem like a reasonable alternative depending on his preference. I would not give him oral anticoagulation until we have decided whether he should undergo coronary angiography during this admission. (2) Shortness of breath: I suspect his dyspnea is related to pulmonary vascular congestion. N terminal proBNP is notably elevated. He also describes symptoms consistent with pulmonary edema. It is very possible that the atrial fibrillation precipitated rapid worsening of his symptoms. It is also possible that the atrial fibrillation has contributed to his shortness of breath due to the reduced efficiency of the heart and possibly elevated rates with activity. He has not noticed any improvement in his symptoms since admission. I think we need to affected diuresis and will order him some Lasix. (3) Cardiomyopathy: He has mildly reduced LV systolic function on his echocardiogram with some regional wall motion abnormalities. Certainly has risk factors for coronary disease. It is possible that longstanding atrial fibrillation and elevated rates have contributed to some reduced function. However, I think an evaluation of his coronaries is warranted. He does not report symptoms of chest discomfort which would be unusual for a gentleman with significant coronary disease. His symptoms all seem to be exertional in nature and there is no evidence of an acute coronary syndrome. I did discuss options for evaluation to include noninvasive testing or coronary angiography. I recommended coronary angiography given his risk factors and echo findings. I would plan on doing this as an inpatient, but the patient seems to have an interest in going home as soon as possible. I think this could safely be arranged as an outpatient if necessary. (4) Mitral regurgitation: Mild on echocardiography. We can follow this over time History of Present Illness Reason for Consultation: Atrial fibrillation, dyspnea on exertion Requesting Physician: Juliano Attending Physician: Ronak Thorpe MD History of Present Illness The patient is a 55-year-old gentleman without a known history of significant cardiac disease who was admitted for symptoms of progressive dyspnea. Patient states that for some time he has had an element of shortness of breath with certain activities. Most commonly this involves bending over or being in a certain position. Over the past few days however he has noted significantly worsening dyspnea to the point where he has had difficulty even walking a few feet without being short of breath. During this time frame is also noted difficulty sleeping as he is waking up at nighttime short of breath and has difficulty lying flat in bed. He feels that he has an element of abdominal distention and mild lower extremity edema. He checks his weight at home periodically, but has not checked it in a few days. He knows that he has been gradually gaining weight over the years. Recently he has attempted to increase his activity by riding a stationary bike. During these episodes he has not noticed any symptoms of chest discomfort arm discomfort or neck discomfort. Does have a sense of fullness in the abdomen on occasion. The patient was evaluated over the years for symptomatic palpitations. This appeared to be related to isolated atrial ventricular ectopy. He states that he has not noticed these palpitations now in some time. He has not been aware of any irregular heartbeats or elevated heart rates. No dizziness or syncope. Allergies Allergy/AdvReac Type Severity Reaction Status Date / Time No Known Allergies Allergy Verified 02/20/21 22:15 Home Medications Medication Instructions Recorded Confirmed Type aspirin 81 mg tablet,delayed 81 mg PO BID #30 tab 05/26/19 02/20/21 Rx release pen needle, diabetic 31 gauge x #200 ea 06/25/19 02/19/21 Rx /" blood-glucose meter, drum-type #1 ea 07/03/19 02/19/21 Rx blood sugar diagnostic #200 ea 07/05/19 02/19/21 Rx lancets #200 ea 07/05/19 02/19/21 Rx glimepiride 4 mg tablet 4 mg PO BID #180 tab 07/18/20 02/20/21 Rx saw palmetto 160 mg capsule 160 mg PO BID 12/03/20 02/20/21 History atorvastatin 10 mg tablet 10 mg PO QPM #90 tab 12/12/20 02/20/21 Rx fluticasone propionate 50 2 spray INTNAS DAILY PRN ml 12/24/20 02/20/21 History mcg/actuation nasal spray,suspension glucosamine sulfate 500 mg tablet 500 mg PO DAILY tab 12/24/20 02/20/21 History tamsulosin 0.4 mg capsule 0.4 mg PO DAILY #30 cap 12/24/20 02/20/21 Rx albuterol sulfate 90 mcg/actuation 1 inh INHALATION QID PRN #8.5 g 02/19/21 02/20/21 Rx aerosol inhaler Basaglar KwikPen U-100 Insulin 70 unit SUBCUT HS 02/20/21 02/20/21 History Basaglar KwikPen U-100 Insulin 100 unit SQ QAM 02/20/21 02/20/21 History losartan 50 mg PO DAILY 02/20/21 02/20/21 History meloxicam 15 mg PO DAILY PRN 02/20/21 02/20/21 History furosemide [Lasix] 40 mg PO BID #60 tab 02/22/21 Rx metformin 1,000 mg PO BID #60 tab 02/22/21 Rx metoprolol succinate See Rx Instructions .ROUTE 02/22/21 02/20/21 Rx .COMPLEX #45 tab rivaroxaban [Xarelto] 20 mg PO PM #30 tab 02/22/21 Rx Patient History Medical History BPH (benign prostatic hyperplasia) Diabetes Hyperlipidemia Hypertension Patellofemoral arthralgia of both knees Social History Smoking Status: Never smoker Second Hand Exposure: No; Do You Dip or Chew Tobacco: No; Hx Alcohol Use: No Hx Substance Use: No Preferred Language: Guyanese Communication Ability: Effective Shell Maker Lockstitch Required: No Beliefs That Will Affect Care: None Current Living Situation: Alone Other Information That Helps Us Care for You: No (work alot, i don't have much help) Feels Safe at Home: Yes Safety Concerns: Feels Safe At This Time Assistive Devices: None Review of Systems Review of Systems: All systems reviewed & are unremarkable except as noted in HPI & below Physical Exam Physical Exam: The patient is alert and oriented. Mood and affect appeared normal. He answered all questions appropriately. Obese HEENT: Pupils are equal and reactive to light and accommodation. Extraocular movements are intact. The sclerae are anicteric. Neuro: Cranial nerves intact Neck: Patient's neck is supple. He has palpable carotid pulses bilaterally without bruits on auscultation. There is no evidence of jugular venous distention. The thyroid is not enlarged. Lungs: Clear to auscultation bilaterally. He has good air movement without use of accessory muscles. No rales wheezes or rhonchi. Cardiac: Heart demonstrates an irregular rhythm. Normal S1 and S2. No murmurs on examination. Pulses: The patient has palpable radial pulses bilaterally that are equal in in tensity Extremities: There was no evidence of hypoperfusion. There is no cyanosis or clubbing. Mild lower extremity edema, right worse than left. Skin: I did not appreciate any rashes on examination today. Results & Data ([facility]) Vital Signs (Past 12 Hours) Vital Signs Temp Pulse Pulse Resp BP Pulse Ox 02/21/21 08:06 36.7 C 85 19 143/83 H 95 02/21/21 08:00 87 02/21/21 03:49 36.6 C 103 H 22 155/103 H 94 02/21/21 02:26 36.6 C 85 18 135/104 H 96 02/21/21 01:23 94 H 20 128/102 H 97 Laboratory Results Abnormal Lab Results 02/20/21 02/20/21 02/20/21 21:35 21:35 21:35 WBC 5.61 RBC 4.49 L Hgb 12.8 L Hct 37.6 L MCV 83.7 MCH 28.5 MCHC 34.0 RDW Std Deviation 38.5 RDW Coeff of Alek 12.8 Plt Count 162 MPV 12.1 H Immature Gran % (Auto) 0.2 Neut % (Auto) 66.5 Lymph % (Auto) 21.7 [place] % (Auto) 10.0 Eos % (Auto) 1.4 Baso % (Auto) 0.2 Neut # (Auto) 3.73 Lymph # (Auto) 1.22 [place] # (Auto) 0.56 Eos # (Auto) 0.08 Baso # (Auto) 0.01 Immature Gran # (Auto) 0.01 PT 11.2 INR 1.1 APTT 24.2 PTT Ratio 0.9 Sodium 141 Potassium 4.0 Chloride 110 H Carbon Dioxide 25 Anion Gap 6.0 BUN 19 H Creatinine 0.80 Est Cr Clr Drug Dosing Not Reportable Est GFR ( Amer) 114.9 Est GFR (Non-Af Amer) 99.2 BUN/Creatinine Ratio 23.7 H Glucose 141 H POC Glucose Estimat Average Glucose Hemoglobin A1c Calcium 8.8 Magnesium 2.1 Total Bilirubin 0.6 AST 37 ALT 67 Alkaline Phosphatase 51 Troponin I 0.025 NT-Pro-B Natriuret Pep 1805 H Total Protein 6.3 L Albumin 3.4 Globulin 2.9 Albumin/Globulin Ratio 1.2 Lipase 136 TSH 1.960 Urine Color Urine Appearance Urine pH Ur Specific [place] Urine Protein Urine Glucose (UA) Urine Ketones Urine Blood Urine Nitrite Urine Bilirubin Urine Urobilinogen Ur Leukocyte Esterase Urine WBC (Auto) Urine RBC (Auto) U Hyaline Cast (Auto) U Epithel Cells (Auto) Urine Bacteria (Auto) COVID-19 Eval Order SARS-CoV-2 (PCR) Hepatitis C Ab Screen Influenza Type A (PCR) Influenza Type B (PCR) RSV (RT-PCR) 02/20/21 02/20/21 02/20/21 21:44 21:44 22:28 WBC RBC Hgb Hct MCV MCH MCHC RDW Std Deviation RDW Coeff of Alek Plt Count MPV Immature Gran % (Auto) Neut % (Auto) Lymph % (Auto) [place] % (Auto) Eos % (Auto) Baso % (Auto) Neut # (Auto) Lymph # (Auto) [place] # (Auto) Eos # (Auto) Baso # (Auto) Immature Gran # (Auto) PT INR APTT PTT Ratio Sodium Potassium Chloride Carbon Dioxide Anion Gap BUN Creatinine Est Cr Clr Drug Dosing Est GFR ( Amer) Est GFR (Non-Af Amer) BUN/Creatinine Ratio Glucose POC Glucose Estimat Average Glucose Hemoglobin A1c Calcium Magnesium Total Bilirubin AST ALT Alkaline Phosphatase Troponin I NT-Pro-B Natriuret Pep Total Protein Albumin Globulin Albumin/Globulin Ratio Lipase TSH Urine Color Yellow Urine Appearance Clear Urine pH 5.0 Ur Specific [place] 1.026 Urine Protein Trace H Urine Glucose (UA) Negative Urine Ketones Negative Urine Blood Negative Urine Nitrite Negative Urine Bilirubin Negative Urine Urobilinogen Negative Ur Leukocyte Esterase Negative Urine WBC (Auto) 1-5 Urine RBC (Auto) 0-4 U Hyaline Cast (Auto) 1-5 U Epithel Cells (Auto) 10-20 H Urine Bacteria (Auto) Negative COVID-19 Eval Order CovFluRsv at [facility] SARS-CoV-2 (PCR) NEGATIVE Hepatitis C Ab Screen Influenza Type A (PCR) Negative Influenza Type B (PCR) Negative RSV (RT-PCR) Negative 02/21/21 02/21/21 02/21/21 03:07 03:24 05:42 WBC RBC Hgb Hct MCV MCH MCHC RDW Std Deviation RDW Coeff of Alek Plt Count MPV Immature Gran % (Auto) Neut % (Auto) Lymph % (Auto) [place] % (Auto) Eos % (Auto) Baso % (Auto) Neut # (Auto) Lymph # (Auto) [place] # (Auto) Eos # (Auto) Baso # (Auto) Immature Gran # (Auto) PT INR APTT PTT Ratio Sodium Potassium Chloride Carbon Dioxide Anion Gap BUN Creatinine Est Cr Clr Drug Dosing Est GFR ( Amer) Est GFR (Non-Af Amer) BUN/Creatinine Ratio Glucose POC Glucose 66 L* 81 Estimat Average Glucose Hemoglobin A1c Calcium Magnesium Total Bilirubin AST ALT Alkaline Phosphatase Troponin I 0.024 NT-Pro-B Natriuret Pep Total Protein Albumin Globulin Albumin/Globulin Ratio Lipase TSH Urine Color Urine Appearance Urine pH Ur Specific [place] Urine Protein Urine Glucose (UA) Urine Ketones Urine Blood Urine Nitrite Urine Bilirubin Urine Urobilinogen Ur Leukocyte Esterase Urine WBC (Auto) Urine RBC (Auto) U Hyaline Cast (Auto) U Epithel Cells (Auto) Urine Bacteria (Auto) COVID-19 Eval Order SARS-CoV-2 (PCR) Hepatitis C Ab Screen Influenza Type A (PCR) Influenza Type B (PCR) RSV (RT-PCR) 02/21/21 02/21/21 02/21/21 05:42 05:42 07:33 WBC RBC Hgb Hct MCV MCH MCHC RDW Std Deviation RDW Coeff of Alek Plt Count MPV Immature Gran % (Auto) Neut % (Auto) Lymph % (Auto) [place] % (Auto) Eos % (Auto) Baso % (Auto) Neut # (Auto) Lymph # (Auto) [place] # (Auto) Eos # (Auto) Baso # (Auto) Immature Gran # (Auto) PT INR APTT PTT Ratio Sodium Potassium Chloride Carbon Dioxide Anion Gap BUN Creatinine Est Cr Clr Drug Dosing Est GFR ( Amer) Est GFR (Non-Af Amer) BUN/Creatinine Ratio Glucose POC Glucose 139 H Estimat Average Glucose 189 Hemoglobin A1c 8.2 H Calcium Magnesium Total Bilirubin AST ALT Alkaline Phosphatase Troponin I NT-Pro-B Natriuret Pep Total Protein Albumin Globulin Albumin/Globulin Ratio Lipase TSH Urine Color Urine Appearance Urine pH Ur Specific [place] Urine Protein Urine Glucose (UA) Urine Ketones Urine Blood Urine Nitrite Urine Bilirubin Urine Urobilinogen Ur Leukocyte Esterase Urine WBC (Auto) Urine RBC (Auto) U Hyaline Cast (Auto) U Epithel Cells (Auto) Urine Bacteria (Auto) COVID-19 Eval Order SARS-CoV-2 (PCR) Hepatitis C Ab Screen Neg Influenza Type A (PCR) Influenza Type B (PCR) RSV (RT-PCR) 02/21/21 11:32 WBC RBC Hgb Hct MCV MCH MCHC RDW Std Deviation RDW Coeff of Alek Plt Count MPV Immature Gran % (Auto) Neut % (Auto) Lymph % (Auto) [place] % (Auto) Eos % (Auto) Baso % (Auto) Neut # (Auto) Lymph # (Auto) [place] # (Auto) Eos # (Auto) Baso # (Auto) Immature Gran # (Auto) PT INR APTT PTT Ratio Sodium Potassium Chloride Carbon Dioxide Anion Gap BUN Creatinine Est Cr Clr Drug Dosing Est GFR ( Amer) Est GFR (Non-Af Amer) BUN/Creatinine Ratio Glucose POC Glucose 90 Estimat Average Glucose Hemoglobin A1c Calcium Magnesium Total Bilirubin AST ALT Alkaline Phosphatase Troponin I NT-Pro-B Natriuret Pep Total Protein Albumin Globulin Albumin/Globulin Ratio Lipase TSH Urine Color Urine Appearance Urine pH Ur Specific [place] Urine Protein Urine Glucose (UA) Urine Ketones Urine Blood Urine Nitrite Urine Bilirubin Urine Urobilinogen Ur Leukocyte Esterase Urine WBC (Auto) Urine RBC (Auto) U Hyaline Cast (Auto) U Epithel Cells (Auto) Urine Bacteria (Auto) COVID-19 Eval Order SARS-CoV-2 (PCR) Hepatitis C Ab Screen Influenza Type A (PCR) Influenza Type B (PCR) RSV (RT-PCR) Diagnostic Findings Echocardiogram performed today revealed mildly reduced LV systolic function with some regional wall motion abnormalities. Mild mitral regurgitation. Chest x-ray obtained at the time admission revealed cardiomegaly and possible vascular congestion. Acute cardiopulmonary process. PG Care Time/CCT Total # of Minutes Spent Total Time Spent with Patient: Total time spent is greater than 50% in coordi nation of care (as documented) at patient's floor/unit and/or counseling patient: Coding Level of Care Code 08581 Inpt Consult Level 4 Diagnoses Atrial fibrillation with RVR I48.91 Shortness of breath R06.02 Cardiomyopathy I42.9 Mitral regurgitation I34.0
[2021-02-21] MEDS ORDERED: METOPROLOL SUCC 50MG EXT REL TAB PO STA (12:20)
[2021-02-21] MEDS: FUROSEMIDE 40 MG in SYRINGE 0 ML IV SCH ×2 (13:01→21:15)
--- NOTE | 2021-02-21 13:49 | Communication Note ---
Date of Service: February 21, 2021 Patient already seen the same day by laboratory courier therefore not be billing for this encounter. Shortness of breath improving since admission. Rate appears well controlled with atrial fibrillation. Troponin remains negative. Hypervolemic on exam. Lasix started by cardiology which appears appropriate. Echo with LVEF 40 to 45% with regional wall motion abnormalities concerning for ischemic cardiomyopathy Additional diagnosis: Acute congestive heart failure with borderline ejection fraction Ischemic cardiomyopathy
--- NOTE | 2021-02-21 18:40 | Electrocardiogram Report ---
Test Reason : Blood Pressure : / mmHG Vent. Rate : 108 BPM Atrial Rate : 288 BPM P-R Int : 000 ms QRS Dur : 098 ms QT Int : 346 ms P-R-T Axes : 000 -45 097 degrees QTc Int : 463 ms Atrial fibrillation with rapid ventricular response with premature ventricular or aberrantly conducte d complexes Left anterior fascicular block Anterolateral infarct , age undetermined Abnormal ECG No previous ECGs available Confirmed by Shmuel Harris ([id number]) on 02/21/2021 6:40:16 PM Referred By: REFERRED SELF Confirmed By:Jose Harris
[2021-02-21 19:34] LABS: BUN Creatinine Ratio 18.5 (10-20); Calcium 8.4 mg/dl (8.5-10.1); Creatinine Clr Calc Pharmacy 124.9 ml/min; Est GFR (African American) 106.6; Potassium 3.9 mmol/L (3.5-5.1)
[2021-02-21] MEDS ORDERED: ATORVASTATIN 10 MG TAB PO SCH (21:00)
[2021-02-22] MEDS: FUROSEMIDE 40 MG in SYRINGE 0 ML IV SCH (07:42)
[2021-02-22] MEDS: CARBOHYDRATES FOR HYPOGLYCEMIA PO PRN (07:42)
[2021-02-22] MEDS: GLUCOSAMINE SULFATE 500 MG CAP PO SCH (07:43)
[2021-02-22] MEDS: TAMSULOSIN HCL 0.4 MG CAP PO SCH (07:43)
[2021-02-22] MEDS: ASPIRIN 81 MG ECTAB PO SCH (07:44)
[2021-02-22] MEDS: ENOXAPARIN 150 MG/ML SYR SQ SCH (07:44)
[2021-02-22 07:51] LABS: BUN Creatinine Ratio 19.6 (10-20); Calcium 8.7 mg/dl (8.5-10.1); Creatinine Clr Calc Pharmacy 148.7 ml/min; Est GFR (African American) 117.4; Est GFR (Non-African American) 101.3; Potassium 3.8 mmol/L (3.5-5.1)
[2021-02-22] MEDS: INSULIN ASPART 100 UNITS/ML 3 ML PEN SC SCH ×2 (08:30→12:05)
[2021-02-22] MEDS ORDERED: METOPROLOL SUCC 50MG EXT REL TAB PO SCH (09:00)
[2021-02-22] MEDS ORDERED: INSULIN GLARGINE 100 UNIT/ML VIAL SQ SCH ×2 (09:00→21:00)
--- NOTE | 2021-02-22 11:12 | Cardiology Progress Note ---
Date of Service February 22, 2021 Assessment & Plan (1) Atrial fibrillation with RVR: He presented with atrial fibrillation and a mildly elevated ventricular rate. His heart rates overall have been reasonably well controlled. I think would be reasonable discharge him on metoprolol succinate 250 mg daily. He may require some additional titration in an outpatient setting. I would agree with starting Xarelto 20 mg daily. (2) Shortness of breath: This seems to be related to pulmonary edema. He diuresed quite well yesterday. His symptoms are improved. He still has an element of congestion and will require additional diuretics. Patient has requested discharge today. I think this is reasonable but we will need to be cautious about any worsening pulmonary edema. I agree with Lasix 40 mg twice daily on an outpatient basis. I talked him about monitoring his weight and notifying us if his weight increases instead of decreases. (3) Cardiomyopathy: He has mildly reduced LV systolic function on his echocardiogram with some regional wall motion abnormalities. He will continue his metoprolol succinate, losartan and and now Lasix. We did discuss the need for coronary evaluation. I proposed to options 1 of which was cardiac perfusion imaging in the other coronary angiography. He does not have symptoms of an acute coronary syndrome. In fact, he does not have symptoms of angina. However, given his risk factors for coronary disease I think we need to eliminate this as a possible etiology for his LV dysfunction. Since he has requested discharge today we will need to address this in the outpatient setting.. (4) Mitral regurgitation: Mild on echocardiography. We can follow this over time Admission and Anticipated Discharge Date Admission Date: February 21, 2021 Subjective This morning the patient claims to be feeling better. He states that his abdominal distention is improved and his breathing is improved. He has been ambulatory around his room denies dizziness or lightheadedness. No symptoms of chest pain. No symptoms of palpitations. Review of Systems Review of Systems: Per HPI Physical Exam Physical Exam: The patient is alert and oriented. Mood and affect appeared normal. He answered all questions appropriately. Obese HEENT: Pupils are equal and reactive to light and accommodation. Extraocular movements are intact. The sclerae are anicteric. Neuro: Cranial nerves intact Lungs: Some crackles in lung bases bilaterally. No expiratory wheezing. Cardiac: Heart demonstrates an irregular rhythm. Normal S1 and S2. No murmurs on examination. Pulses: The patient has palpable radial pulses bilaterally that are equal in intensity Extremities: There was no evidence of hypoperfusion. There is no cyanosis or clubbing. Mild lower extremity edema, right worse than left. Skin: I did not appreciate any rashes on examination today. Results & Data ([facility]) Vital Signs (Past 12 Hours) Vital Signs Temp Pulse Pulse Resp BP Pulse Ox 02/22/21 11:01 36.8 C 52 L 18 146/92 H 100 02/22/21 08:00 80 02/22/21 07:22 36.7 C 92 H 20 146/94 H 95 02/22/21 03:18 36.4 C L 70 18 128/91 93 02/21/21 23:33 36.6 C 89 18 153/87 H 94 Laboratory Results Abnormal Lab Results 02/21/21 02/21/21 02/21/21 11:32 11:52 16:51 Sodium Potassium Chloride Carbon Dioxide Anion Gap BUN Creatinine Est Cr Clr Drug Dosing Est GFR ( Amer) Est GFR (Non-Af Amer) BUN/Creatinine Ratio Glucose POC Glucose 90 110 H Calcium Troponin I 0.021 NT-Pro-B Natriuret Pep 02/21/21 02/21/21 02/22/21 18:55 20:34 07:12 Sodium 140 141 Potassium 3.9 3.8 Chloride 110 H 108 H Carbon Dioxide 25 28 Anion Gap 6.0 5.0 BUN 17 15 Creatinine 0.92 0.76 Est Cr Clr Drug Dosing 124.9 148.7 Est GFR ( Amer) 106.6 117.4 Est GFR (Non-Af Amer) 92.0 101.3 BUN/Creatinine Ratio 18.5 19.6 Glucose 120 H 55 L POC Glucose 96 Calcium 8.4 L 8.7 Troponin I NT-Pro-B Natriuret Pep 1306 H 02/22/21 02/22/21 02/22/21 07:35 07:36 08:01 Sodium Potassium Chloride Carbon Dioxide Anion Gap BUN Creatinine Est Cr Clr Drug Dosing Est GFR ( Amer) Est GFR (Non-Af Amer) BUN/Creatinine Ratio Glucose POC Glucose 61 L* 61 L* 70 Calcium Troponin I NT-Pro-B Natriuret Pep PG Care Time/CCT Total # of Minutes Spent Total Time Spent with Patient: Total time spent is greater than 50% in coordination of care (as documented) at patient's floor/unit and/or counseling patient: Coding Level of Care Code 67626 Subseq Hosp Care Lvl 2 Diagnoses Atrial fibrillation with RVR I48.91 Shortness of breath R06.02 Cardiomyopathy I42.9 Mitral regurgitation I34.0
[2021-02-22] MEDS ORDERED: FUROSEMIDE 40 MG in SYRINGE 0 ML IV ONE (12:00)
--- NOTE | 2021-02-22 14:07 | Discharge Summary ---
Date of Service February 22, 2021 Admission HPI Per Admitting Provider The patient is a 55-year-old male with a past medical history including diabetes mellitus, hyperlipidemia, hypertension, BPH, orthopnea, patellofemoral knee pain, uncontrolled diabetes mellitus, diabetic neuropathy, long-term use of insulin and morbid obesity. Patient reports that initially began to develop some shortness of breath about 2 weeks ago, and then over the past 2 days become significantly worse. He did have a chest x-ray and BNP done in the outpatient setting, with which were not abnormal. When he called his family doctor's office today he referred him to the ED for assessment. Admission Exam Per Admitting Provider The patient is awake, alert and oriented 3, well developed and well nourished, normocephalic and atraumatic, lying in bed and in no acute distress. HEENT--PERRL, EOMI, mucous membranes and oropharynx dry. Neck--supple. No JVD. No bruits. Thyroid normal, trachea midline, no adenopathy. Heart--. Irregularly irregular no murmurs, rubs or gallops. Lungs--clear bilaterally, no respiratory distress, no accessory muscle use. Abdomen--normal bowel sounds and soft. Nontender. Nondistended. Morbidly obese Extremities--no cyanosis or clubbing. No edema. Dermatologic--normal skin turgor, normal color, no abnormal lymph nodes, no rash. Neurologic--cranial nerves II through XII grossly intact. Rheumatologic--normal range of motion. Psychiatric--normal affect. Principal Diagnosis Acute heart failure with borderline ejection fraction Atrial fibrillation with rapid ventricular rate Discharge Exam Constitutional well developed and + morbidly obese; no acute distress Respiratory normal respiratory effort Auscultation: + crackles (Bibasal); no diminished lung sounds, no rales and no wheezes Cardiovascular Rate/Rhythm: regular rate and + irregularly irregular Heart Sounds: no murmur Vessels: + JVD Extremities: normal capillary refill and + pedal edema (2+ to knees equal b/l); no calf tenderness Musculoskeletal no cyanosis or clubbing, extremities motor strength 5/5 Skin no rashes, warm and dry Neurologic moves all extremities and awake; not confused Psychiatric A+Ox3, euthymic affect Discharge Data Allergies Allergy/AdvReac Type Severity Reaction Status Date / Time No Known Allergies Allergy Verified 03/02/21 16:03 Consultations 02/20/21 23:44 ED Decision to Admit Stat 02/21/21 02:25 Consult Cardiology Routine Ordered Studies Transthoracic echocardiogram 02/21/2021 Interpretation summary: The study was technically difficult. Left ventricular systolic function is mild to moderately reduced (LVEF 40 to 45%). There is mild concentric left ventricular hypertrophy. There are regional wall motion abnormalities as specified (difficult to assess with arrhythmia but septum is akinetic, the apical inferior wall appears severely hypokinetic and the remaining dial are mildly hypokinetic). The left atrium is moderately dilated. There is mild mitral regurgitation. Right ventricular systolic pressure is elevated at 40 to 50 mmHg. Inferior vena cava is mildly dilated. Hospital Course (1) Atrial fibrillation with RVR: Navdeep Kinney is a 55-year-old male admitted to [facility] from February 21-2020 due to shortness of breath on exertion. He was noted to have new onset atrial fibrillation with rapid ventricular rate treated with metoprolol for rate control and initially Lovenox for anticoagulation. Anticoagulation was switched to Xarelto on discharge. He was also noted to be in acute congestive heart failure likely causing his shortness of breath and related to rapid ventricular rate. This improved with intravenous Lasix and you will be prescribed Lasix on discharge. Advised to follow a low-sodium < 2g /day diet. Regarding his diabetes as requested by the patient his prescription was not changed however patient was provided instructions as his insulin requirement has been traumatically lower during his hospitalization; suspect due to dietary changes. Without glimepiride and metformin his insulin requirement on day of discharge has reduced to: Basal insulin: Lantus (Basaglar) 50 units every morning, Lantus 30 units every night Mealtime insulin: NovoLog (total 16 units on day prior to discharge) Recommended staying on basal insulin as above on discharge and adjusting back up if necessary to aim morning fasting glucose 80-100. Metformin has been switched to the extended release to minimize side effects of diarrhea he has been having. Recommended to follow-up with his PCP regarding continuous diabetes management. Echocardiogram was concerning for wall motion abnormalities suggesting coronary artery disease and a cardiac catheterization will be arranged as an outpatient by cardiology. Kind regards, Dr Ronak Thorpe (2) Diabetes: (3) Hypertension: (4) Hyperlipidemia: (5) BPH w urinary obs/LUTS: Total Time Total Time Spent Total Time Spent (In Minutes): 40 Total Time Includes: Examination of the Patient, Discharge Planning, Medication Reconciliation and Communication With Other Providers Discharge Plan Discharge Items Patient Disposition: Home - Self-Care Reason For Visit: A-FIB WITH RVR Discharge Diagnosis: Acute heart failure with borderline ejection fraction Atrial fibrillation with rapid ventricular rate Activity: Per Instructions section Lifting: None and No more than 5 pounds Bathing: No limitations Sexual Activity: Wait until after follow-up appointment Exercise/Sports: Wait until after follow-up appointment Driving/Machine Use: No limitations Non-emergency contact: Network Consultant Call non-emergency contact if: you have any medication questions and your symptoms worsen Follow-up/Referrals: Chicho Goodman III, MD [Primary Care Provider] - 02/27/21 8:30 am Yared Harris MD [Physician] - (Follow up to be arranged by cardiology office) Diet: Carb Consistent or DM2, Heart Healthy and Low Sodium (2gm) Addtl Attending Provider Instructions: You were admitted to [facility] from February 21-2020 due to shortness of breath on exertion. You were noted to have an abnormal heart rhythm called atrial fibrillation with a rapid ventricular rate. This was treated with metoprolol for rate control and lovenox for anticoagulation (stroke risk reduction). In addition you were noted to have acute congestive heart failure causing your shortness of breath. This improved with intravenous Lasix and you will be prescribed Lasix on discharge. Please follow a low sodium diet. Regarding your diabetes as requested you insulin prescription has not been adjusted however even without metformin and glimepiride your insulin requirement is dramatically reduced while in hospital. This is likely due to having a much lower carbohydrate intake and if you follow a low carbohydrate diet at home you will also need to reduce your insulin. Without glimepiride and metformin your insulin requirement on day of discharge has reduced to: Basal insulin: Lantus (Basaglar) 50 units every morning, Lantus 30 units every night Mealtime insulin: NovoLog (total 16 units on day prior to discharge) Recommend staying on basal insulin as above on discharge and adjusting back up if necessary to aim morning fasting glucose 80-100. Metformin has been switched to the extended release to minimize side effects however insurance coverage of this varies (the dose has not changed) Please follow up with your PCP for ongoing recommendations. Given wall motion abnormalities on echocardiogram there is concern about coronary artery disease and a cardiac catheterization will be arranged as an outpatient by cardiology. If you have not heard any thing by next week please give the cardiology office a call (number above). Kind regards, Dr Ronak Thorpe Pending Studies at Discharge: No Stand-Alone Forms: My [facility] [employer], Smoking Cessation Medications and DC Order Prescriptions: New Xarelto 20 mg tablet 20 mg PO PM Qty: 30 RF: 0 metformin 1,000 mg tablet extended release 24hr 1,000 mg PO BID Qty: 60 RF: 0 Continued aspirin [Adult Aspirin Regimen] 81 mg tablet,delayed release (DR/EC) 81 mg PO BID Qty: 30 RF: 2 (DME) pen needle, diabetic [BD Ultra-Fine Short Pen Needle] 31 gauge x 5/16" needle See Dose Instructions .ROUTE .MEDSUPPLY Qty: 200 RF: 3 (DME) Accu-Chek Compact Plus Care kit See Dose Instructions .ROUTE .MEDSUPPLY Qty: 1 RF: 0 (DME) Accu-Chek Guide test strips strip See Dose Instructions .ROUTE .MEDSUPPLY Qty: 200 RF: 5 (DME) lancets [Accu-Chek Fastclix Lancet Drum] misc See Dose Instructions .ROUTE .MEDSUPPLY Qty: 200 RF: 5 glimepiride 4 mg tablet 4 mg PO BID Qty: 180 RF: 3 atorvastatin 10 mg tablet 10 mg PO QPM Qty: 90 RF: 3 glucosamine sulfate [Glucosamine] 500 mg tablet 500 mg PO DAILY RF: 0 fluticasone propionate [Allergy Relief (fluticasone)] 50 mcg/actuation spray,suspension 2 spray INTNAS DAILY PRN (Reason: allergy symptoms) RF: 0 tamsulosin 0.4 mg capsule 0.4 mg PO DAILY Qty: 30 RF: 5 albuterol sulfate [Ventolin HFA] 90 mcg/actuation HFA aerosol inhaler 1 inh inhalation QID PRN (Reason: shortness of breath or wheezing) Qty: 8.5 RF: 0 saw palmetto 160 mg capsule 160 mg PO BID RF: 0 Basaglar KwikPen U-100 Insulin 100 unit/mL (3 mL) insulin pen 70 unit SUBCUT HS RF: 0 losartan 50 mg tablet 50 mg PO DAILY RF: 0 meloxicam 15 mg tablet 15 mg PO DAILY PRN (Reason: Pain) RF: 0 Basaglar KwikPen U-100 Insulin 100 unit/mL (3 mL) insulin pen 100 unit SQ QAM RF: 0 Discontinued metformin 500 mg tablet 1,000 mg PO BID Qty: 360 RF: 3 metoprolol succinate 200 mg tablet extended release 24 hr 200 mg PO DAILY Qty: 30 RF: 11 No Action metoprolol succinate 200 mg tablet extended release 24 hr See Rx Instructions .ROUTE .COMPLEX Qty: 45 RF: 11 bumetanide 1 mg tablet 1 mg PO BID Qty: 60 RF: 2 Discharge Orders: Discharge Order (Routine); Ordered 02/22/21 Ordered By: Ronak Byers/Other Patient Handouts: Diabetes and Heart Disease, Managing Type 2 Diabetes, Discharge Instructions for Atrial ..., Heart Failure Dc, Managing Diabetes: The A1C Test, Diabetes Carbs Fats Protein Admission Data Admit Date/Time: 02/21/21 18:51 Attending Provider: Ronak Thorpe Admit Provider: Sanjiv Swartz Primary Care Provider: Chicho Goodman III Other Providers: Sanjiv Swartz ; Carlo Chaudhari Other Interventions: Discharge Summary Assessment (RN) Last Done: 02/22/21 14:11 Coding Level of Care Code D/C Day Management >30 mins Diagnoses Atrial fibrillation with RVR I48.91 Diabetes E11.9 Hypertension I10 Hyperlipidemia E78.5 BPH w urinary obs/LUTS N40.1; N13.8
== END 2021-02-22 15:23 | disposition home or self-care (01) | DRG 292 ==
LOC: ED 20:25 → 2S 20:25 → SUATTDRO 02-21 01:36 → 2S 02-21 02:05 → 2N 02-21 13:41